=== PATIENT | male | born 1990 | race Caucasian/White ===

== ENCOUNTER 2022-08-19 00:39 | Emergency (ER) | payer MEDICARE, MEDICAID ==
[2022-08-19] MEDS ORDERED: HYDROcodone/Acetaminophen 10/325 mg Tablet ONE (00:56)
[2022-08-19] MEDS ORDERED: AMOXicillin 250 MG CAP ONE (00:56)
== END 2022-08-19 01:10 | disposition home or self-care (01) ==
LOC: BURERS 00:39
DX: K08.89 Other specified disorders of teeth and supporting structures (principal); H66.003 Acute suppurative otitis media without spontaneous rupture of ear drum, bilateral; F17.210 Nicotine dependence, cigarettes, uncomplicated
CPT/HCPCS: 99282

== ENCOUNTER 2022-11-25 16:25 | Emergency (ER) | payer OTHER, MEDICARE ==
[2022-11-25] MEDS ORDERED: Cephalexin 250 MG CAP ONE (16:37)
== END 2022-11-25 16:41 | disposition home or self-care (01) ==
LOC: BURERS 16:25
DX: S51.011A Laceration without foreign body of right elbow, initial encounter (principal); F17.210 Nicotine dependence, cigarettes, uncomplicated; W26.9XXA Contact with unspecified sharp object(s), initial encounter
CPT/HCPCS: 12001

== ENCOUNTER 2023-03-26 07:52 | Emergency (ER) | payer MEDICARE, OTHER ==
[2023-03-26] MEDS ORDERED: Ondansetron PF 4 MG/2 ML Vial ONE (08:06)
== END 2023-03-26 09:04 | disposition home or self-care (01) ==
LOC: BURERS 07:52
DX: R11.2 Nausea with vomiting, unspecified (principal); R19.7 Diarrhea, unspecified; F17.210 Nicotine dependence, cigarettes, uncomplicated
CPT/HCPCS: 96361; 96374; J2405

== ENCOUNTER 2024-01-16 16:43 | Emergency (ER) | payer MEDICARE, OTHER ==
[2024-01-16] MEDS ORDERED: predniSONE 20 MG TAB ONE (16:57)
[2024-01-16] MEDS ORDERED: Famotidine 20 MG TAB ONE (16:57)
[2024-01-16] MEDS ORDERED: diphenhydrAMINE 25 MG CAP ONE (16:57)
== END 2024-01-16 18:47 | disposition home or self-care (01) ==
LOC: BURERS 16:43
DX: T63.441A Toxic effect of venom of bees, accidental (unintentional), initial encounter (principal); F17.210 Nicotine dependence, cigarettes, uncomplicated
CPT/HCPCS: 99282; J7512